=== PATIENT | female | born 1950 | race Hispanic/Latino ===

== ENCOUNTER → 2024-12-26 | Outpatient (REF) | payer MEDICARE | LOC: US 11:18 | PROVIDERS: ATTEND Internal Medicine | DX: R11.0 Nausea (principal); K76.0 Fatty (change of) liver, not elsewhere classified | CPT/HCPCS: 76700 ==

== ENCOUNTER → 2025-03-06 | Outpatient (REF) | payer MEDICARE | LOC: RAD 11:59 | PROVIDERS: ATTEND Internal Medicine | DX: M54.50 Low back pain, unspecified (principal) | CPT/HCPCS: 72110 ==